=== PATIENT | male | born 1975 | race Two or more races ===

== ENCOUNTER 2016-10-13 11:04 | Emergency (ER) | payer BC, OTHER ==
[2016-10-13] MEDS ORDERED: AMOXICILLIN TRIHYDRATE 250 MG CAPSULE ONE (11:53)
[2016-10-13] MEDS ORDERED: IBUPROFEN 800 MG TABLET ONE (11:53)
[2016-10-13] MEDS ORDERED: PREDNISONE 20 MG TABLET ONE (11:53)
== END 2016-10-13 12:12 | disposition home or self-care (01) ==
LOC: ED 11:04
DX: K08.89 Other specified disorders of teeth and supporting structures (principal)
CPT/HCPCS: 99283 ×2; A9270 ×2; J7512